=== PATIENT | male | born 1970 | race Caucasian/White ===

== ENCOUNTER 2016-07-20 09:32 | Outpatient (CLI) | payer MEDICAID | END 2016-07-20 09:33 | disposition home or self-care (01) | DX: R10.9 Unspecified abdominal pain (principal) ==

== ENCOUNTER 2016-08-01 11:06 | Outpatient (CLI) | payer MEDICAID | END 2016-08-01 11:07 | disposition home or self-care (01) | DX: K80.20 Calculus of gallbladder without cholecystitis without obstruction (principal); R93.421 Abnormal radiologic findings on diagnostic imaging of right kidney; R10.9 Unspecified abdominal pain ==

== ENCOUNTER 2016-08-18 08:00 | Outpatient (CLI) | payer MEDICAID | END 2016-08-18 08:01 | disposition home or self-care (01) | DX: R10.9 Unspecified abdominal pain (principal); K21.9 Gastro-esophageal reflux disease without esophagitis ==

== ENCOUNTER 2016-08-31 08:50 | Outpatient (CLI) | payer MEDICAID | END 2016-08-31 08:51 | disposition home or self-care (01) | DX: Z13.6 Encounter for screening for cardiovascular disorders (principal) ==

== ENCOUNTER 2017-10-26 17:55 | Observation (INO) | payer MEDICAID ==
--- NOTE | 2017-10-26 18:28 | ED Physician Documentation ---
PD HPI ABD PAIN - Stated complaint Stated Complaint: ABD PX - Chief complaint Chief Complaint: Abd Pain - History obtained from History obtained from: Patient - History of Present Illness Timing - onset: Other (About a year ago he was having epigastric pains and was diagnosed with gallstones by ultrasound. Then for quite some time he was not having any issues but about 2 weeks ago started to get epigastric pain radiating to the back in the middle the night that was quite uncomfortable. Today after eating chicken he developed severe sharp epigastric and right upper quadrant pain in the same location but more severe than his prior episodes. Pain is improving but not gone at this juncture, he declines prescription pain killers on initial evaluation.) Review of Systems Ten Systems: 10 systems reviewed and negative Constitutional: denies: Fever, Chills Throat: denies: Dental pain / toothache, Oral lesions / sores, Sore throat Cardiac: denies: Chest pain / pressure, Palpitations PD PAST MEDICAL HISTORY - Past Medical History Past Medical History: No - Present Medications Home Medications: Ambulatory Orders Medication Instructions Recorded Confirmed No Known Home Medications [No 10/26/17 10/26/17 Known Home Medications] - Allergies Allergies/Adverse Reactions: Allergies Allergy/AdvReac Type Severity Reaction Status Date / Time No Known Drug Allergies Allergy Verified 10/26/17 18:11 - Living Situation Living Situation: reports: With family - Social History Does the pt drink ETOH?: No - Family History Family history: reports: Non contributory PD ED PE NORMAL - Vitals Vital signs reviewed: Yes - General General: Alert and oriented X 3, No acute distress - HEENT HEENT: PERRL, EOMI - Neck Neck: Supple, no meningeal sign, No bony TTP - Cardiac Cardiac: RRR, No murmur - Respiratory Respiratory: No respiratory distress, Clear bilaterally - Abdomen Abdomen: Normal bowel sounds, Soft, Other (Mild right upper quadrant tenderness with negative Raymond sign) - Neuro Neuro: Alert and oriented X 3, Normal speech Results - Vitals Vitals: Vital Signs - 24 hr 10/26/17 10/26/17 18:04 19:35 Temperature 37.3 C Heart Rate 89 94 Respiratory 18 16 Rate Blood Pressure 108/75 112/78 O2 Saturation 97 98 Oxygen O2 Source Room air - EKG (time done) 1925 Rate: Rate (enter#) (81) Rhythm: NSR [place]: Normal Intervals: Normal [place] QRS: Normal Ischemia: Normal ST segments Computer interpretation: Agree with computer - Labs Labs: Laboratory Tests 10/26/17 10/26/17 18:42 18:42 WBC 8.1 RBC 4.48 L Hgb 14.2 Hct 42.1 MCV 94.0 MCH 31.8 H MCHC 33.8 RDW 13.2 Plt Count 170 MPV 8.6 Neut # (Auto) 5.8 Lymph # (Auto) 1.4 L [place] # (Auto) 0.6 Eos # (Auto) 0.2 Baso # (Auto) 0.0 Absolute Nucleated RBC 0.00 Nucleated RBC % 0.1 Sodium 137 Potassium 3.8 Chloride 102 Carbon Dioxide 27 Anion Gap 8.0 BUN 11 Creatinine 0.9 Estimated GFR (MDRD) 91 Glucose 99 Calcium 8.9 Total Bilirubin 1.3 H AST 331 H ALT 245 H Alkaline Phosphatase 57 Total Protein 6.7 Albumin 4.0 Globulin 2.7 Albumin/Globulin Ratio 1.5 Lipase 22 - Rads (name of study) RUQ sono Radiology: EMP read contemporaneously (Active cholelithiasis with positive sonographic Raymond sign, no sonographic evidence of cholecystitis, normal bile ducts.) PD MEDICAL DECISION MAKING - ED course ED course: 47-year-old gentleman with known cholelithiasis presents with worsening biliary colic and now transaminitis. Case discussed by phone with Dr. Tommie Buckley who will admit for interval cholecystectomy and request 2 g of cefoxitin in the meantime. - Sepsis Event Vital Signs: Vital Signs - 24 hr 10/26/17 10/26/17 18:04 19:35 Temperature 37.3 C Heart Rate 89 94 Respiratory 18 16 Rate Blood Pressure 108/75 112/78 O2 Saturation 97 98 Oxygen O2 Source Room air Departure - Departure Disposition: ED Place in Observation Clinical Impression: Cholecystitis Condition: Stable
[2017-10-26 18:49] LABS: BASOPHILS % (AUTO) 0.6 %; EOSINOPHILS # (AUTO) 0.2 10^3/uL (0.0-0.7); EOSINOPHILS % (AUTO) 2.6 %; HGB - HEMOGLOBIN 14.2 g/dL (14.0-18.0); LYMPHOCYTES # (AUTO) 1.4 10^3/uL (1.5-3.5); LYMPHOCYTES % (AUTO) 16.8 %; MEAN CORPUSCULAR HEMOGLOBIN 31.8 pg (27.0-31.0); MEAN CORPUSCULAR HGB CONC 33.8 g/dL (32.0-36.0); MEAN PLATELET VOLUME 8.6 fL (7.4-11.4); MONOCYTES # (AUTO) 0.6 10^3/uL (0.0-1.0); NEUTROPHILS # (AUTO) 5.8 10^3/uL (1.5-6.6); PLT - PLATELET COUNT 170 10^3/uL (130-450); RED BLOOD COUNT 4.48 10^6/uL (4.70-6.10); RED CELL DISTRIBUTION WIDTH 13.2 % (12.0-15.0); WHITE BLOOD COUNT 8.1 x10^3/uL (4.8-10.8)
--- NOTE | 2017-10-26 19:20 | Ultrasound Report ---
Procedure Date: 10/26/2017 Accession Number: [id number] / [id number] Procedure: US - Abdomen Limited CPT Code: FULL RESULT: EXAM: ABDOMEN ULTRASOUND LIMITED, RUQ EXAM DATE: 10/26/2017 07:03 PM. CLINICAL HISTORY: RUQ pain. COMPARISON: 08/01/2016. TECHNIQUE: Real-time scanning was performed with static images obtained. FINDINGS: Liver: Upper normal in size, 17.4 cm. Normal contour. The heterogeneous throughout. Main portal vein flow: Hepatopetal. Gallbladder: Filled with small stones, as before. No ru gallbladder wall thickening or pericholecystic fluid. The patient is tender over the gallbladder. Biliary System: CBD measures 5.6 mm. No intrahepatic or extrahepatic ductal dilatation. Other: Right kidney normal in size, 12.0 cm in length. No hydronephrosis. There is a 0.6 0.5 x 0.4 cm mildly hyperechoic cortical focus anteriorly in the mid kidney, as before, nonspecific. IMPRESSION: 1. Gallbladder completely filled with small stones. There is a positive sonographic Raymond sign, but there are no other ancillary findings of acute cholecystitis. Clinical correlation is requested. 2. Tiny 6 mm non-shadowing hyperechoic cortical focus in the mid right kidney as before which may represent an angiomyolipoma. RADIA
[2017-10-26 19:23] LABS: ALBUMIN/GLOBULIN RATIO 1.5 (1.0-2.2); BILIRUBIN,TOTAL 1.3 mg/dL (0.2-1.0); CALCIUM 8.9 mg/dL (8.5-10.3); CREATININE 0.9 mg/dL (0.6-1.2); TOTAL PROTEIN 6.7 g/dL (6.7-8.2)
[2017-10-26] MEDS ORDERED: cefOXitin 2 GM in SODIUM CHLORIDE 0.9% MINIBAG 100 ML IV STA (21:33)
[2017-10-26] MEDS ORDERED: SODIUM CHLORIDE FLUSH 0.9% 10 ML SYRINGE IVP PRN (21:36)
[2017-10-26] MEDS ORDERED: HYDROmorphone 0.5 MG/0.5 ML SYRINGE IVP PRN (21:40)
[2017-10-26] MEDS: SODIUM CHLORIDE 0.9% 1,000 ML IV SCH (22:55)
[2017-10-26] MEDS ORDERED: SODIUM CHLORIDE 0.9% 1,000 ML IV ONE (22:58)
[2017-10-26] MEDS: SODIUM CHLORIDE FLUSH 0.9% 10 ML SYRINGE IVP SCH (23:43)
[2017-10-27] MEDS: cefOXitin 1 GM in SODIUM CHLORIDE 0.9% MINIBAG 100 ML IV SCH ×3 (04:05→16:31)
[2017-10-27 06:19] LABS: BASOPHILS % (AUTO) 0.7 %; EOSINOPHILS # (AUTO) 0.2 10^3/uL (0.0-0.7); EOSINOPHILS % (AUTO) 4.4 %; LYMPHOCYTES # (AUTO) 0.9 10^3/uL (1.5-3.5); LYMPHOCYTES % (AUTO) 17.8 %; MEAN CORPUSCULAR HEMOGLOBIN 31.5 pg (27.0-31.0); MEAN CORPUSCULAR HGB CONC 33.5 g/dL (32.0-36.0); MEAN PLATELET VOLUME 9.1 fL (7.4-11.4); MONOCYTES # (AUTO) 0.6 10^3/uL (0.0-1.0); MONOCYTES % (AUTO) 12.4 %; NEUTROPHILS # (AUTO) 3.3 10^3/uL (1.5-6.6); NEUTROPHILS % (AUTO) 64.7 %; PLT - PLATELET COUNT 163 10^3/uL (130-450); RED BLOOD COUNT 4.45 10^6/uL (4.70-6.10); WHITE BLOOD COUNT 5.1 x10^3/uL (4.8-10.8)
[2017-10-27 06:31] LABS: ALBUMIN 3.8 g/dL (3.2-5.5); ALBUMIN/GLOBULIN RATIO 1.6 (1.0-2.2); BILIRUBIN,TOTAL 1.2 mg/dL (0.2-1.0); CALCIUM 8.5 mg/dL (8.5-10.3); CREATININE 0.8 mg/dL (0.6-1.2); TOTAL PROTEIN 6.2 g/dL (6.7-8.2)
[2017-10-27] MEDS: SODIUM CHLORIDE 0.9% 1,000 ML IV SCH ×2 (06:52→10:31)
[2017-10-27] MEDS ORDERED: BUPIVACAINE 0.5%-EPI 1:200000 PF 30 ML VIAL ONE (07:32)
[2017-10-27] MEDS ORDERED: IOTHALAMATE MEGLUMINE 50 ML VIAL ONE (07:32)
[2017-10-27] MEDS ORDERED: LACTATED RINGERS 1,000 ML IV ONE ×2 (08:14→09:26)
[2017-10-27] MEDS ORDERED: DEXAMETHASONE 4 MG/ML VIAL IVP ONE (08:15)
[2017-10-27] MEDS ORDERED: NEOSTIGMINE 1 MG/1 ML 10 ML MDV IVP ONE (08:15)
[2017-10-27] MEDS ORDERED: fentaNYL 100 MCG/2 ML VIAL IVP ONE (08:15)
[2017-10-27] MEDS ORDERED: GLYCOPYRROLATE 1 MG/5 ML VIAL IVP ONE (08:15)
[2017-10-27] MEDS ORDERED: ONDANSETRON 4 MG/2 ML VIAL IVP ONE (08:15)
[2017-10-27] MEDS ORDERED: MIDAZOLAM 2 MG/2 ML VIAL IVP ONE (08:15)
[2017-10-27] MEDS ORDERED: LIDOCAINE-MPF 2% 5 ML VIAL IM ONE (08:15)
[2017-10-27] MEDS ORDERED: ROCURONIUM 50 MG/5 ML VIAL IVP ONE (08:15)
[2017-10-27] MEDS ORDERED: PROPOFOL 200 MG/20 ML VIAL IVP ONE (08:15)
[2017-10-27] MEDS ORDERED: KETOROLAC 30 MG/ML VIAL IVP ONE (08:15)
[2017-10-27] MEDS ORDERED: IOTHALAMATE MEGLUMINE 50 ML VIAL IVP ONE (08:16)
[2017-10-27] MEDS ORDERED: BUPIVACAINE 0.5%-EPI 1:200000 PF 30 ML VIAL SUBQ ONE ×2 (08:16)
[2017-10-27] MEDS ORDERED: GLUCAGON 1 MG/ML VIAL ONE (08:55)
--- NOTE | 2017-10-27 11:09 | XRAY Report ---
Procedure Date: 10/27/2017 Accession Number: [id number] / [id number] Procedure: FL - OR C-Arm Procedure CPT Code: FULL RESULT: EXAM: OR C-Arm Procedure DATE: 10/27/2017 10:42 AM CLINICAL HISTORY: SURGERY COMPARISON: None TECHNIQUE: Intraoperative cholangiogram FINDINGS: Images of an intraoperative cholangiogram demonstrate opacification of the common bile duct and proximal intrahepatic ducts. There is a persistent filling defect in the distal common bile duct, compatible with choledocholithiasis. No spill of contrast into the duodenum is documented. IMPRESSION: Choledocholithiasis, with distal common duct obstruction. Fluoroscopy time: 0.7 minutes; 6 images obtained.
[2017-10-27] MEDS: HYDROmorphone 0.5 MG/0.5 ML SYRINGE IVP PRN ×2 (11:28→16:26)
[2017-10-27] MEDS: SODIUM CHLORIDE FLUSH 0.9% 10 ML SYRINGE IVP SCH (11:28)
[2017-10-27 15:51] VITALS: BP 116/64
--- NOTE | 2017-10-28 12:48 | HISTORY & PHYSICAL EXAMINATION ---
DATE OF SERVICE: 10/26/2017 Physician: Ze Buckley MD REASON FOR ADMISSION: Acute abdominal pain. HISTORY OF PRESENT ILLNESS: The patient is a 47-year-old male who presents with a less than 24-hour history of continuous right upper quadrant abdominal pain. He has been having this type of pain for the last year. He was seen at that time where he had an abdominal ultrasound. It is felt that his abdominal pain was related to cholelithiasis seen on the ultrasound. However, his pain resolved and he did not seek any further therapy. Within last 2 weeks, he has been having intermittent epigastric discomfort and now has become continuous overnight. He denies any nausea, vomiting, diarrhea, constipation, hepatitis or history of jaundice. PAST MEDICAL HISTORY: None. MEDICATIONS: None. PAST SURGICAL HISTORY: None. ALLERGIES TO MEDICATIONS: None. HABITS: The patient denies any smoking, alcohol or drug use. SOCIAL HISTORY: The patient lives with the family. FAMILY HISTORY: Noncontributory. REVIEW OF SYSTEMS: A 12 point review of systems obtained with pertinent positives discussed and all others being negative. PHYSICAL EXAMINATION: VITALS: Temperature is 37.3, heart rate 89, blood pressure 108/75. GENERAL: The patient lying in bed. He is cooperative and pleasant. He appears to answer questions fully. EYES: Nonicteric. NECK: No lymphadenopathy. HEART: Regular. LUNGS: Clear. BACK: Nontender. ABDOMEN: Soft, mild tenderness in the epigastric area. EXTREMITIES: No edema or cyanosis. NEUROLOGIC: The patient appears to be neurologically intact without any deficit. PSYCHOLOGICAL: The patient is coherent, cooperative, appears to answer questions fully. DIAGNOSTIC DATA: White blood cell count of 8.1, hemoglobin 14, platelets of 170, a creatinine of 0.9, total bilirubin 1.3, AST of 331, ALT of 245, alkaline phosphatase of 57. Ultrasound shows acute cholecystitis with positive sonographic Raymond sign and cholelithiasis. Normal bile duct size. ASSESSMENT: Epigastric pain with elevated liver function tests. This most likely represents acute cholecystitis, but also possible common bile duct stone is to be considered. PLAN: I have recommended that he undergo laparoscopic cholecystectomy, possible intraoperative cholangiogram, possible laparotomy. The risks and possible complications of surgery have been explained to him include, but not limited to bleeding, infection, anesthesia risks, heart or lung problems with healing problems, injury to abdominal structures such as intestine or common bile duct causing morbidity and need for further intervention, heart or lung problems, wound healing problems hernia formation, continued symptoms after surgery, possible need for ERCP, etc. He accepts the risks and would like to proceed with surgery. No guarantees given or implied. PLAN: 1. Admit. 2. N.p.o. 3. IV fluids. 4. IV antibiotics. 5. Laparoscopic cholecystectomy, possible laparotomy. TD: 10/27/2017 07:20
--- NOTE | 2017-10-28 12:48 | OPERATIVE REPORT ---
DATE OF SERVICE: 10/27/2017 Physician: Ze Buckley MD PREOPERATIVE DIAGNOSIS: Acute cholecystitis. POSTOPERATIVE DIAGNOSES 1. Acute and chronic cholecystitis with cholelithiasis. 2. Common bile duct stone. NAME OF PROCEDURE: SURGEON: Ze Buckley MD ANESTHESIA: General. INDICATIONS FOR PROCEDURE: The patient is a 47-year-old male who has been having on and off again pain for the last year in the right upper quadrant and abdominal ultrasound which revealed gallstones. With the last two weeks, he has had more intermittent abdominal pain and in the last 24 hours, continuous pain. Because of this, he came to the emergency room to be evaluated. He had an elevated liver function tests. Ultrasound shows positive Raymond sign for acute cholecystitis. FINDINGS AT SURGERY: The patient had acute and chronic cholecystitis with cholelithiasis being present. On intraoperative cholangiogram, the patient had a distal common bile duct completely occluding the common bile duct. PROCEDURE: After informed consent was obtained, the patient was taken to the operating room and placed in supine position. General endotracheal anesthesia was administered. The patient's abdomen was then prepped and draped in the usual sterile fashion. Prior to making abdominal incisions, the skin was injected with local anesthesia. An infraumbilical incision was made in the skin using a scalpel. A 5 mm Optiview trocar was then inserted through the incision through the fascia and into abdominal cavity under direct vision. The abdomen was then insufflated. Three 5 mm ports were then placed in the right upper quadrant with the umbilical port switched to a 12 mm port. There were omental adhesions to the gallbladder, which were taken down carefully using electrocautery. The gallbladder fundus was then grasped and lifted anteriorly and superiorly exposing the triangle of [place]. The peritoneum was then scored and the cystic duct identified. It was dissected free from the surrounding structures. The cystic duct was quite large. A cholangiogram was then performed. A Quinones clamp was then placed across the neck of the gallbladder with a needle then inserted into the neck. I had attempted to obtain a cholangiogram; however, there was filling defect in the mid cystic duct. The cystic duct was then further dissected free, almost up to the common bile duct with this being done with care. Again, the Quinones clamp was used to do the cholangiogram. Now, the cystic duct was then clamped with a clamp in the mid portion with the needle inserted distally. A cholangiogram was then performed. This showed still length to the cystic duct. There was a distal filling defect occluding flow of contrast, most likely a common bile duct stone. The Quinones clamp was then removed. Clips were then placed proximally and distally along the cystic duct with it then being divided. A 2-0 Vicryl Endoloop was then placed across the proximal end of the cystic duct in order to prevent any leakage as the duct was quite thick and the clips may not have stayed on. Once this end had been secured, the cystic artery was then identified, isolated, clipped proximally and distally and then divided. Gallbladder was then dissected off the gallbladder bed using electrocautery, placed in Endobag and removed through the umbilical port. Right upper quadrant was thoroughly irrigated until the return fluid was clear. The ports were then removed and the abdomen was then desufflated. The umbilical fascial defect was closed using 0 Vicryl suture. Skin incisions were closed using 4-0 Monocryl subcuticular stitch. Dermabond was then applied upon the incision sites. The patient was then awakened, extubated, and taken from the operating room in stable condition. ESTIMATED BLOOD LOSS: 10 mL COMPLICATIONS: None. CONDITION OF THE PATIENT AT THE END OF PROCEDURE: Stable. SPECIMENS: Gallbladder and gallstones. DRAINS, PACKS: None. CLASSIFICATION OF WOUND: Clean/contaminated. TD: 10/27/2017 11:40
--- NOTE | 2017-10-28 19:58 | PROVIDER PROGRESS NOTE ---
Subjective - General Admit Date: 10/26/17 Objective - Patient Data Weight: Weight 10/26/17 10/27/17 10/28/17 23:59 23:59 23:59 Weight (kg) 59 kg Intake & Output: Intake and Output Totals x24h 10/26/17 10/27/17 10/28/17 23:59 23:59 23:59 Intake Total 2752.5 Output Total 800 Balance 1952.5 - Lab Results Lab Results: 10/27/17 05:50 10/27/17 05:50 Impression/Plan - Problem List Problem List: Patient has cbd stone seen on intraoperative cholangiogram. Will transfer to [facility] for ercp.
== END 2017-10-27 16:35 | disposition short-term general hospital (02) ==
LOC: ED 17:55 → MS2 21:36
PROVIDERS: ADMIT Surgery; ATTEND Surgery
PROC: 0FT44ZZ Resection of Gallbladder, Percutaneous Endoscopic Approach (ICD-10-PCS; principal; 2017-10-27 07:30)
DX: K80.67 Calculus of gallbladder and bile duct with acute and chronic cholecystitis with obstruction (principal)
CPT/HCPCS: 36415; 47563; 74300; 76705; 80053; 83690; 85025; 93005; 96365; 96366; 99283; 99284; J1170; J7120; Q9961; 88304

== ENCOUNTER 2022-03-02 10:01 | Outpatient (CLI) | payer MEDICAID | END 2022-03-02 10:02 | disposition home or self-care (01) | LOC: DI.S 10:01 | PROVIDERS: ATTEND Registered Nurse | DX: Z53.9 Procedure and treatment not carried out, unspecified reason (principal) ==

== ENCOUNTER 2022-06-26 07:05 | Outpatient (CLI) | payer MEDICAID ==
--- NOTE | 2022-06-26 12:13 | XRAY Report ---
PROCEDURE: Foot 2 View LT INDICATIONS: BUNION, LEFT FOOT TECHNIQUE: 2 views of the foot were acquired. COMPARISON: None FINDINGS: Bones: No fractures or dislocations. Moderate hallux valgus is seen. Moderate first MTP joint osteoa rthritic changes also noted. No gross bony erosive changes. No suspicious bony lesions. Soft tissues: Soft tissue swelling over medial aspect of first metatarsal head is seen. No tibiotala r joint effusion. Achilles tendon appears normal. IMPRESSION: Moderate hallux valgus with overlying soft tissue bunion. No fracture or dislocation. Moderate first MTP joint osteoarthritis. Reviewed by: Marvin Camejo MD on 06/26/2022 12:11 PM PST Approved by: Marvin Camejo MD on 06/26/2022 12:11 PM PST Station ID: [id number]
== END 2022-06-26 07:06 | disposition home or self-care (01) ==
LOC: DI.S 07:05
PROVIDERS: ATTEND Registered Nurse
DX: M21.612 Bunion of left foot (principal); M20.12 Hallux valgus (acquired), left foot; M19.072 Primary osteoarthritis, left ankle and foot

== ENCOUNTER 2023-01-25 07:48 | Outpatient (CLI) | payer MEDICAID ==
--- NOTE | 2023-01-25 16:47 | XRAY Report ---
PROCEDURE: Foot 3 View LT INDICATIONS: LEFT FOOT PAIN TECHNIQUE: 3 views of the foot were acquired. COMPARISON: X-ray foot 06/26/2022 FINDINGS: Bones: No fractures or dislocations. No suspicious bony lesions. Hallux [place] deformity increase d compared to prior exam. Overlying soft tissue bunion is present. First MTP degenerative narrowing w ithout erosions are present. Soft tissues: No suspicious soft tissue calcifications or masses. IMPRESSION: Progressive first digit hallux valgus deformity. Reviewed by: Katharina Thomas MD on 01/25/2023 4:45 PM PDT Approved by: Katharina Thomas MD on 01/25/2023 4:45 PM PDT Station ID: [id number]
== END 2023-01-25 07:49 | disposition home or self-care (01) ==
LOC: DI.S 07:48
PROVIDERS: ATTEND Podiatrist
DX: M20.12 Hallux valgus (acquired), left foot (principal)

== ENCOUNTER 2023-12-24 09:01 | Day surgery (SDC) | payer OTHER ==
[2023-12-24] MEDS: LACTATED RINGERS 1,000 ML IV ONE ×2 (09:19→10:58)
[2023-12-24] MEDS ORDERED: PROPOFOL 500 MG/50 ML 500 MG/50 ML VIAL ONE (09:55)
--- NOTE | 2023-12-24 09:59 | ANESTHESIA ---
Pre-Anesthesia VS, & Labs - Diagnosis screening - Procedure colonoscopy Vital Signs: Temp Pulse Resp BP Pulse Ox O2 Flow Rate 36.5 C 79 16 126/85 H 100 12/24/23 09:33 12/24/23 09:33 12/24/23 09:33 12/24/23 09:33 12/24/23 09:33 Height: 5 ft 9 in Weight (kg): 59.3 kg Body Mass Index: 19.3 BMI Classification: Normal - NPO Last Fluid Intake: 0815 Last Food Intake: >8hr - Lab Results Lab results reviewed: Yes Home Medications and Allergies No Known Home Medications 10/26/17 Allergies/Adverse Reactions: Allergies Allergy/AdvReac Type Severity Reaction Status Date / Time No Known Drug Allergies Allergy Verified 10/26/17 18:11 Anes History & Medical History - Anesthetic History Anesthesia Complications: reports: No previous complications - Medical History Cardiovascular: reports: None Pulmonary: reports: None Urinary: reports: None Neuro: reports: None Musculoskeletal: reports: None Endocrine/Autoimmune: reports: Other Blood Disorders: reports: None Skin: reports: Eczema Smoking Status: Former smoker (quit x 4 years) Psychosocial: reports: No issues indicated - Surgical History General: reports: Cholecystectomy Eyes Ears Nose Throat (EENT): reports: Other Exam General: Alert, Oriented x3 Dental: WNL Mouth Openin Fingerbreadth Neck Mobility: Normal Mallampati classification: II Thyromental Distance: 4-6 cm Respiratory: Lungs clear Cardiovascular: Regular rate Plan Anesthesia Type: Total IV Consent for Procedure(s) Verified and Reviewed: Yes Code Status: Attempt Resuscitation ASA classification: 1-Healthy patient Is this case an emergency?: No
[2023-12-24] MEDS ORDERED: LIDOCAINE-MPF 2% 5 ML VIAL ONE (10:05)
--- NOTE | 2023-12-24 10:14 | HISTORY & PHYSICAL EXAMINATION ---
Chief Complaint - Chief Complaint Chief Complaint: here for colonoscopy History of Present Illness - History Obtained From Records Reviewed: yes History obtained from: pt Exam Limitations: none - History of Present Illness HPI Comment/Other: first time colonoscopy. no gi problems. no recent labs. mother recently treated for colon cancer History - Past Medical History Cardiovascular: reports: None Respiratory: reports: None Neuro: reports: None Endocrine/Autoimmune: reports: Other GI: reports: Cholelithiasis : reports: None HEENT: reports: None Psych: reports: Anxiety Musculoskeletal: reports: None Derm: reports: Eczema MRSA Hx?: No - Past Surgical History General: reports: Cholecystectomy HEENT: reports: Other Meds/Allgy - Home Medications Home Medications: Ambulatory Orders Medication Instructions Recorded Confirmed No Known Home Medications 10/26/17 12/23/23 - Allergies Allergies/Adverse Reactions: Allergies Allergy/AdvReac Type Severity Reaction Status Date / Time No Known Drug Allergies Allergy Verified 10/26/17 18:11 Review of Systems - Other Findings Other Findings: 10 pt ros as above otherwise unremarkable Exam - Vital Signs Vital Signs: Vital Signs x48h Temp Pulse Resp BP Pulse Ox 12/24/23 09:33 36.5 C 79 16 126/85 H 100 - Physical Exam General Appearance: positive: No acute distress, Alert Eyes Bilateral: positive: PERRL, EOMI ENT: positive: No signs of dehydration Neck: positive: No JVD Respiratory: positive: No respiratory distress Cardiovascular: positive: Regular rate & rhythm Abdomen: positive: No distention Neurologic/Psychiatric: positive: Oriented x3 Conclusion/Plan - Problem List (1) Colon cancer screening Conclusion/Plan: plan colonoscopy. parq held and consent obtained - Lab Results Lab results reviewed: Yes
[2023-12-24] MEDS ORDERED: PROPOFOL 200 MG/20 ML VIAL IVP ONE (10:53)
[2023-12-24 11:28] VITALS: BP 118/86; O2SAT 98
--- NOTE | 2023-12-24 12:12 | ANESTHESIA POST OP EVALUATION ---
Anesthesia Post Eval - Post Anesthesia Eval Vitals: Last Vital Signs Temp 36.7 C 12/24/23 10:58 Pulse 69 12/24/23 11:18 Resp 10 L 12/24/23 11:18 BP 118/86 H 12/24/23 11:18 Pulse Ox 98 12/24/23 11:18 O2 Flow Rate CV Function Including HR & BP: Stable Pain Control: Satisfactory Nausea & Vomiting: Negative Mental Status: Baseline Respiratory Status: Airway Patent Hydration Status: Satisfactory Anesthesia Complications: None
== END 2023-12-24 09:02 | disposition home or self-care (01) ==
LOC: SDS 09:01
PROVIDERS: ATTEND Surgery
PROC: 0DBL8ZZ Excision of Transverse Colon, Via Natural or Artificial Opening Endoscopic (ICD-10-PCS; 2023-12-24)
PROC: 0DBP8ZZ Excision of Rectum, Via Natural or Artificial Opening Endoscopic (ICD-10-PCS; principal; 2023-12-24 10:30)
DX: Z12.11 Encounter for screening for malignant neoplasm of colon (principal); D12.3 Benign neoplasm of transverse colon; K62.1 Rectal polyp; K57.30 Diverticulosis of large intestine without perforation or abscess without bleeding; Z80.0 Family history of malignant neoplasm of digestive organs; K64.1 Second degree hemorrhoids; Z87.891 Personal history of nicotine dependence
CPT/HCPCS: 45380; 45385; J7120